=== PATIENT | female | born 1950 | race Caucasian/White ===

== ENCOUNTER 2018-06-29 20:51 | Outpatient (REF) | payer MEDICARE, BC, SELFPAY ==
[2018-06-29 21:31] LABS: Anion Gap 5.5 mmol/L (3-11); BUN 24 mg/dL (7-18); CO2 31.5 mmol/L (21.0-32.0); CREATININE 0.98 mg/dL (0.55-1.02); Calcium 9.5 mg/dL (8.5-10.1); Chloride 104 mmol/L (98-107); Cholesterol 206 mg/dL (50-200); Estimated GFR 56.61 (mL/min/1.73m2); Glucose 99 mg/dL (70-100); HDL Cholesterol 54 mg/dL (40-60); LDL CHOLESTEROL 136 mg/dL (<100); Potassium 4.4 mmol/L (3.5-5.1); Sodium 141 mmol/L (136-145); Triglyceride 104 mg/dL (30-150)
== END 2018-06-29 21:11 ==
LOC: NCHCN 20:51
PROVIDERS: PCP Physician Assistant Medical; Visit Provider Physician Assistant Medical
DX: E78.5 Hyperlipidemia, unspecified (principal); I10 Essential (primary) hypertension
CPT/HCPCS: 80048; 80061; 83721

== ENCOUNTER 2019-09-01 21:01 | Outpatient (REF) | payer MEDICARE, BC, SELFPAY ==
[2019-09-01 21:17] LABS: ALT 21 U/L (14-59); AST 14 U/L (15-37); Albumin 3.9 g/dL (3.4-5.0); Alkaline Phosphatase 58 U/L (46-116); Anion Gap 9.8 mmol/L (3-11); BUN 26 mg/dL (7-18); Bilirubin, Total 0.7 mg/dL (0.2-1.0); CO2 29.2 mmol/L (21.0-32.0); Calcium 9.4 mg/dL (8.5-10.1); Calculated LDL 124 mg/dL; Chloride 105 mmol/L (98-107); Cholesterol 198 mg/dL (<200); Estimated GFR 55.14 (mL/min/1.73m2); Glucose 96 mg/dL (74-106); HDL Cholesterol 48 mg/dL (40-60); Potassium 4.4 mmol/L (3.5-5.1); Sodium 144 mmol/L (136-145); TSH (W/Ref FT4) 1.42 uIU/mL (0.36-3.74); Total Protein 6.7 g/dL (6.4-8.2); Triglyceride 134 mg/dL (<150)
== END 2019-09-01 21:21 ==
LOC: NCHCN 21:01
PROVIDERS: PCP Physician Assistant Medical; Visit Provider Physician Assistant Medical
DX: E78.5 Hyperlipidemia, unspecified (principal)
CPT/HCPCS: 80053; 80061; 84443

== ENCOUNTER 2021-07-25 20:57 | Outpatient (REF) | payer MEDICARE, BC, SELFPAY ==
[2021-07-25 20:52] LABS: BUN 19 mg/dL (7-18); CREATININE 0.9 mg/dL (0.55-1.02); Calcium 9.3 mg/dL (8.5-10.1); Chloride 105 mmol/L (98-107); Glucose 93 mg/dL (74-106); Potassium 3.7 mmol/L (3.5-5.1); Sodium 141 mmol/L (136-145)
== END 2021-07-25 20:58 | disposition home or self-care (01) ==
LOC: NCHCN 20:57
PROVIDERS: PCP Physician Assistant Medical; Visit Provider Physician Assistant Medical
DX: I10 Essential (primary) hypertension (principal)
CPT/HCPCS: 80048

== ENCOUNTER 2022-05-10 12:24 | Outpatient (REF) | payer MEDICARE, BC, SELFPAY ==
[2022-05-10 14:54] LABS: HCT 40.5 % (36.0-46.0); HGB 13.8 g/dL (11.2-15.7); MCH 28.5 pg (27.0-33.0); MCHC 34.1 % (32.0-36.0); MCV 84 fL (80-95); MPV 10.7 fL (8.0-11.0); Platelet Count 301 10^3/uL (130-400); RBC 4.84 10^6/uL (3.93-5.22); RDW 12.3 % (11.7-14.6); RDW-SD 36.9 fL; WBC 5.43 10^3/uL (4.4-10.8)
[2022-05-10 15:24] LABS: ALT 24 U/L (14-59); AST 19 U/L (15-37); Albumin 3.8 g/dL (3.4-5.0); Alkaline Phosphatase 75 U/L (46-116); Anion Gap 8.4 mmol/L (3-11); BUN 20 mg/dL (7-18); Bilirubin, Total 0.6 mg/dL (0.2-1.0); CO2 29.6 mmol/L (21.0-32.0); CREATININE 0.9 mg/dL (0.55-1.02); Calcium 9.5 mg/dL (8.5-10.1); Calculated LDL 169 mg/dL (<100); Chloride 104 mmol/L (98-107); Cholesterol 261 mg/dL (<200); Estimated GFR 68.35 (mL/min/1.73m2); Glucose 98 mg/dL (74-106); HDL Cholesterol 59 mg/dL (40-60); Magnesium 1.9 mg/dL (1.8-2.4); Potassium 3.6 mmol/L (3.5-5.1); Sodium 142 mmol/L (136-145); TSH (W/Ref FT4) 1.27 uIU/mL (0.36-3.74); Total Protein 7.8 g/dL (6.4-8.2); Triglyceride 165 mg/dL (<150)
== END 2022-05-10 12:25 | disposition home or self-care (01) ==
LOC: NCHCN 12:24
PROVIDERS: PCP Physician Assistant Medical; Visit Provider Physician Assistant Medical
DX: E78.5 Hyperlipidemia, unspecified (principal)
CPT/HCPCS: 80053; 80061; 85027; 83735; 84443

== ENCOUNTER 2022-11-07 11:11 | Emergency (ER) | payer MEDICARE, BC, SELFPAY ==
[2022-11-07 11:26] VITALS: BP 167/82; PULSE 110; RESP 15; TEMP 37.3; O2SAT 96
--- NOTE | 2022-11-07 12:15 | DI.RAD_ITS ---
Exam(s) XR ANKLE LT COMPLETE EXAM: XR ANKLE LT COMPLETE CLINICAL HISTORY: fall TECHNIQUE: 2D digital imaging was performed. Three views. COMPARISON: No exams were available for comparison FINDINGS: BONES: No acute fracture is present. No bony destructive lesion is seen. JOINTS:The ankle mortise is normally aligned. SOFT TISSUE: Marked swelling at medial malleolus. IMPRESSION: Medial soft tissue swelling. DATA REPOSITORY: RADIATION DOSE DELIVERED:
--- NOTE | 2022-11-07 12:15 | DI.RAD_ITS ---
Exam(s) XR FOOT LT COMPLETE EXAM: XR FOOT LT COMPLETE CLINICAL HISTORY: Fall with trauma. TECHNIQUE: 2D digital imaging was performed. Three views. COMPARISON: No exams were available for comparison FINDINGS: BONES: No acute fracture is present. No bony destructive lesion is seen. JOINTS: No dislocation present. SOFT TISSUE: Normal. IMPRESSION: Unremarkable radiographs of the left foot. DATA REPOSITORY: RADIATION DOSE DELIVERED:
--- NOTE | 2022-11-07 12:15 | DI.RAD_ITS ---
Exam(s) XR TIB/FIB LT EXAM: XR TIB/FIB LT CLINICAL HISTORY: fall. TECHNIQUE: 2D digital imaging was performed. Two views. COMPARISON: No exams were available for comparison FINDINGS: There is a mildly displaced fracture of the fibular head. No additional fractures are seen. The kne e and ankle are unremarkable as visualized. IMPRESSION: Proximal fibular fracture. DATA REPOSITORY: RADIATION DOSE DELIVERED:
[2022-11-07] MEDS: Ibuprofen 600 MG TAB PO (12:42)
--- NOTE | 2022-11-07 14:37 | W.ED.GENAD ---
Discharge Plan Disposition Patient Disposition: Home Discharge Details Clinical Impression: Fracture of fibula, proximal, Left ankle sprain Primary Care Provider: Nani Fontaine ED Provider: Mike Peña Home Meds and New Rx's Prescriptions: No Action trazodone 50 MG tablet 50 mg PO HS atenolol 25 MG tablet 25 mg PO DAILY losartan-hydrochlorothiazide [Hyzaar] 1 EACH tablet 1 tab-cap PO DAILY red yeast rice 600 MG capsule 1,200 mg PO DAILY rosuvastatin 5 mg tablet 5 mg PO 1XD Discharge Instructions Instructions: Ankle Sprain (ED), Leg Fracture (ED) Additional Instructions: You may continue to use [id number] pain medication as needed for discomfort. Please rest your extremity and keep elevated to help with swelling. You may also apply ice for 20 minutes at a time with at least 20 minutes in between applications. If you develop any new or significant worsening of symptoms feel free to return the emergency department for reassessment otherwise follow-up with orthopedics as discussed. Referrals: [facility] [Provider Group] (Please call the office tomorrow for arrangement of follow-up appointment) Discharge Data Discharge Date/Time-TO BE ENTERED AT DEPARTURE: 11/07/22 14:49 Medical Decision Making Patient presenting to the emergency department for chief complaint of left ankle and knee injury. Patient slipped going down 2 stairs. Denies any other injury or trauma. Physical exam shows tenderness to the lateral aspect of the proximal fibula, midshaft fibula and both medial and lateral ankle along with dorsal foot. Patient has no neuropathy or peripheral nerve findings. we will perform radiological imaging for evaluation of acute fracture. Pending results patient given ibuprofen Reviewed radiological imaging and patient has a proximal fibular fracture otherwise soft tissue swelling is noted no other acute fracture or dislocation. Patient placed in knee immobilizer and given Jose wrap for her ankle. Patient was offered crutches but she stated that she does not feel she would be stable and that these would continue to cause further injury or potential fall but patient already has a cane and states that she would prefer to use that. I do feel that that is appropriate given potential for further injury with crutch use. Patient placed upon orthopedic list for follow-up and patient denies any need for further pain medication beyond [id number] meds. After discussion of diagnosis and plan of care patient has no further needs, questions, or concerns and states clear understanding to return to the emergency department for any worsening symptoms. This documentation was generated using [employer] dictation system, please disregard any oddities of phrase or misspellings. HPI General Mode of arrival: wheelchair. Date/Time Provider Initiated Documentation: 11/07/22 11:39. Limitations to Documentation: no limitations. Information obtained by: patient and RN notes reviewed. History of Present Illness 72 year old F presents to the emergency department with the chief complaint of Fall, left ankle injury, described as severe, with intensity rated at 10. Quality is described as aching, and is localized to the left and lower extremity. Patient started experiencing this hour(s) (2) and it has been constant. No relieving factors improve symptom(s), No exacerbating factors reported . Patient notes no other symptoms.. Patient did receive the following treatments prior to arrival, none Related Data Home Medications Medication Instructions Recorded Confirmed atenolol 25 mg tablet 25 mg PO DAILY 09/05/14 11/07/22 losartan 50 mg-hydrochlorothiazide 1 tab-cap PO DAILY 09/05/14 11/07/22 12.5 mg tablet (Hyzaar) red yeast rice 600 mg capsule 1,200 mg PO DAILY 09/05/14 11/07/22 trazodone 50 mg tablet 50 mg PO HS 09/05/14 11/07/22 rosuvastatin 5 mg tablet 5 mg PO 1XD 11/07/22 11/07/22 Allergies Allergy/AdvReac Type Severity Reaction Status Date / Time STATINS DEPLETION AdvReac MUSCLE Uncoded 11/07/22 11:30 CRAMPS General Stated Complaint: Fall/Non TraumaCriteria RASHAAD: 3 Review of Systems Narrative: 6 systems reviewed and unremarkable except what is marked below. ENT Ears, Nose, Mouth, and Throat: Denies neck pain Musculoskeletal Musculoskeletal: Reports as per HPI, Denies back pain, Denies deformity, Reports arthralgias, Reports joint swelling, Denies neck pain, Denies numbness and Denies tingling Integumentary/Breasts Skin/Breast: Denies rash and Denies wounds Neurologic Neurologic: Denies numbness and Denies tingling PFSH All Active Problems Fracture of fibula, proximal (Acute) Left ankle sprain (Acute) Medical History Sensorineural hearing loss, bilateral (12/27/13) Social History Smoking/Tobacco Use Status: Former Tobacco Use Smoking risk assessment performed?: Yes Alcohol Intake: current Alcohol Intake frequency: holidays/special occasions only Drug use: Never Substance use type: does not use Do you feel safe at home: Yes Do you feel safe in your relationship?: Yes Exam Const General: cooperative, no acute distress and not ill appearing Orientation: alert, awake and oriented x3 Resp Effort & Inspection: normal respiratory effort, able to speak in complete sentences and no respiratory distress Cardio Rate: regular rate Rhythm: regular rhythm Pulses: normal peripheral pulses Skin General skin exam: no rashes or lesions noted Neuro General: patient alert, patient awake, patient oriented x3, moves all extremities and no focal motor deficits Sensory Exam: no sensory deficits noted Extrem General: normal exam except as noted Left lower extremity: knee Details: tenderness Location: of the proximal fibula, lower leg Details: tenderness Location: of the proximal fibula, ankle Details: tenderness Location: of the lateral malleolus and of the medial malleolus, swelling Details: diffusely and abnormal ROM Details: pain with active ROM and pain with passive ROM and foot Details: tenderness Location: of the dorsal foot, toes with normal ROM and vascular exam Details: dorsalis pedis pulse present, posterior tibial pulse present and normal capillary refill Course Vital Signs Vital signs: Vital Signs Temperature 37.3 C 11/07/22 11:26 Pulse 110 H 11/07/22 11:26 Respiratory Rate 15 11/07/22 11:26 Blood Pressure 167/82 H 11/07/22 11:26 Pulse Oximetry 96 11/07/22 11:26 Temperature 37.3 C 11/07/22 11:26 Temperature Source Oral 11/07/22 11:26 Pulse 110 H 11/07/22 11:26 Respiratory Rate 15 11/07/22 11:26 Blood Pressure 167/82 H 11/07/22 11:26 Blood Pressure Position Sitting 11/07/22 11:26 Pulse Oximetry 96 11/07/22 11:26 Oxygen Delivery Method Room Air 11/07/22 11:26 Oxygen Flow Rate 0 11/07/22 11:26 Pain Level 10 11/07/22 11:26
== END 2022-11-07 14:49 | disposition home or self-care (01) ==
PROVIDERS: Emergency Provider Nurse Practitioner Family; PCP Physician Assistant Medical
DX: S82.832A Other fracture of upper and lower end of left fibula, initial encounter for closed fracture (principal); S93.402A Sprain of unspecified ligament of left ankle, initial encounter; W10.9XXA Fall (on) (from) unspecified stairs and steps, initial encounter
CPT/HCPCS: 99283; 73590; 73610; 73630

== ENCOUNTER 2022-11-18 14:54 | Outpatient (CLI) | payer MEDICARE, BC, SELFPAY ==
--- NOTE | 2022-11-18 14:45 | DI.RAD_ITS ---
Exam(s) XR TIB/FIB LT EXAM: XR TIB/FIB LT INDICATION: f/u fracture. COMPARISON: CR XR TIB/FIB LT from 11/07/2022 TECHNIQUE: 2D digital imaging was performed. Two views. FINDINGS: There has been no change in the alignment of the fracture of the fibular head. No new abnormalities. The ankle is unremarkable as visualized. DATA REPOSITORY: RADIATION DOSE DELIVERED:
--- NOTE | 2022-11-18 14:45 | DI.RAD_ITS ---
Exam(s) XR ANKLE LT COMPLETE EXAM: XR ANKLE LT COMPLETE CLINICAL HISTORY: f/u ankle sprain TECHNIQUE: 2D digital imaging was performed. Four views and including stress view. COMPARISON: CR XR ANKLE LT COMPLETE from 11/07/2022 FINDINGS: BONES: No acute fracture is present. No bony destructive lesion is seen. JOINTS:The ankle mortise is not optimally profiled on the stress view. No definite mortise widening. SOFT TISSUE: Normal. IMPRESSION: Unremarkable radiographs of the left ankle. DATA REPOSITORY: RADIATION DOSE DELIVERED:
== END 2022-11-18 14:55 | disposition home or self-care (01) ==
PROVIDERS: PCP Physician Assistant Medical; Referring Provider Physician Assistant Medical; Visit Provider Physician Assistant
DX: S82.832A Other fracture of upper and lower end of left fibula, initial encounter for closed fracture (principal); S93.402A Sprain of unspecified ligament of left ankle, initial encounter; W10.9XXA Fall (on) (from) unspecified stairs and steps, initial encounter
CPT/HCPCS: 99214; 73590; 73610

== ENCOUNTER 2022-12-09 14:33 | Outpatient (CLI) | payer MEDICARE, BC, SELFPAY ==
--- NOTE | 2022-12-09 13:45 | DI.RAD_ITS ---
Exam(s) XR TIB/FIB LT EXAM: XR TIB/FIB LT CLINICAL HISTORY: F/U FIB FRACTURE. TECHNIQUE: 2D digital imaging was performed. COMPARISON: CR XR TIB/FIB LT from 11/18/2022 FINDINGS: Two views: Fracture at the level the fibular head-neck is again noted and appears unchanged. Tibial plateau unr emarkable and there are no other focal osseous findings tibia and fibula. IMPRESSION: Unchanged appearance the fracture site in the fibular head-neck. DATA REPOSITORY: RADIATION DOSE DELIVERED:
== END 2022-12-09 14:34 | disposition home or self-care (01) ==
LOC: DIORS 14:33
PROVIDERS: PCP Physician Assistant Medical; Referring Provider Physician Assistant Medical
DX: S82.832A Other fracture of upper and lower end of left fibula, initial encounter for closed fracture (principal); W10.9XXA Fall (on) (from) unspecified stairs and steps, initial encounter
CPT/HCPCS: 99213; 73590

== ENCOUNTER 2023-01-13 11:13 | Outpatient (CLI) | payer MEDICARE, BC, SELFPAY ==
--- NOTE | 2023-01-13 11:00 | DI.RAD_ITS ---
Exam(s) XR TIB/FIB LT EXAM: XR TIB/FIB LT CLINICAL HISTORY: F/U FRACTURE. TECHNIQUE: 2D digital imaging was performed of the left tibia and fibula. Two images were obtained. AP and lateral views were obtained. COMPARISON: CR XR TIB/FIB LT from 12/09/2022 FINDINGS: BONES: There has been no change in alignment of the fracture involving the junction of the femoral he ad and neck. No new fracture is seen. No bony destructive lesion is seen. Visualized portion of kne e and ankle joints are unremarkable. SOFT TISSUE: Normal. IMPRESSION: Stable proximal fibular fracture. DATA REPOSITORY: RADIATION DOSE DELIVERED:
== END 2023-01-13 11:14 | disposition home or self-care (01) ==
LOC: DIORS 11:13
PROVIDERS: PCP Physician Assistant Medical; Referring Provider Physician Assistant Medical; Visit Provider Student in an Organized Health Care Education/Training Program
DX: S82.832D Other fracture of upper and lower end of left fibula, subsequent encounter for closed fracture with routine healing (principal); W19.XXXD Unspecified fall, subsequent encounter
CPT/HCPCS: 99213; 73590

== ENCOUNTER 2023-03-17 11:51 | Outpatient (CLI) | payer MEDICARE, BC, SELFPAY ==
--- NOTE | 2023-03-17 11:30 | DI.RAD_ITS ---
Exam(s) XR TIB/FIB LT EXAM: XR TIB/FIB LT CLINICAL HISTORY: left proximal fibula fracture. TECHNIQUE: 2D digital imaging was performed of the left tibia and fibula. Two images were obtained. AP and lateral views were obtained. COMPARISON: CR XR TIB/FIB LT from 11/07/2022 CR XR TIB/FIB LT from 01/13/2023 FINDINGS: BONES: There has been no change in alignment of the healing proximal fibular fracture. No new fractu re is seen. No bony destructive lesion is seen. Visualized portion of knee and ankle joints are unre markable. SOFT TISSUE: Normal. IMPRESSION: Stable proximal fibular fracture deformity. DATA REPOSITORY: RADIATION DOSE DELIVERED:
== END 2023-03-17 11:52 | disposition home or self-care (01) ==
LOC: DIORS 11:51
PROVIDERS: PCP Physician Assistant Medical; Referring Provider Physician Assistant Medical; Visit Provider Student in an Organized Health Care Education/Training Program
DX: M23.92 Unspecified internal derangement of left knee (principal); S93.402D Sprain of unspecified ligament of left ankle, subsequent encounter; S82.832D Other fracture of upper and lower end of left fibula, subsequent encounter for closed fracture with routine healing; W19.XXXD Unspecified fall, subsequent encounter
CPT/HCPCS: 20610; 73590; J1040

== ENCOUNTER 2023-06-11 12:41 | Outpatient (REF) | payer MEDICARE, BC, SELFPAY ==
[2023-06-11 15:38] LABS: ALT 29 U/L (14-59); AST 20 U/L (15-37); Albumin 3.9 g/dL (3.4-5.0); Alkaline Phosphatase 84 U/L (46-116); Anion Gap 7.9 mmol/L (3-11); BUN 14 mg/dL (7-18); Bilirubin, Total 0.6 mg/dL (0.2-1.0); CO2 28.1 mmol/L (21.0-32.0); Calcium 9.9 mg/dL (8.5-10.1); Calculated LDL 85 mg/dL (<100); Chloride 104 mmol/L (98-107); Cholesterol 171 mg/dL (<200); Estimated GFR 59.86 (mL/min/1.73m2); Glucose 101 mg/dL (74-106); HDL Cholesterol 60 mg/dL (40-60); Potassium 3.5 mmol/L (3.5-5.1); Sodium 140 mmol/L (136-145); Total Protein 7.8 g/dL (6.4-8.2); Triglyceride 130 mg/dL (<150)
== END 2023-06-11 12:42 | disposition home or self-care (01) ==
LOC: NCHCN 12:41
PROVIDERS: PCP Physician Assistant Medical; Visit Provider Physician Assistant Medical
DX: E78.5 Hyperlipidemia, unspecified (principal); Z00.00 Encounter for general adult medical examination without abnormal findings
CPT/HCPCS: 80053; 80061

== ENCOUNTER 2025-02-18 12:20 | Outpatient (REF) | payer MEDICARE, BC, SELFPAY ==
[2025-02-18 15:54] LABS: Hemoglobin A1C 5.9 % (<5.7)
[2025-02-18 16:14] LABS: ALT 25 U/L (14-59); AST 18 U/L (15-37); Alkaline Phosphatase 85 U/L (46-116); Anion Gap 7.4 mmol/L (3-11); BUN 18 mg/dL (7-18); Bilirubin, Total 0.8 mg/dL (0.2-1.0); CO2 29.6 mmol/L (21.0-32.0); CREATININE 0.8 mg/dL (0.55-1.02); Calcium 9.3 mg/dL (8.5-10.1); Calculated LDL 97 mg/dL (<100); Chloride 105 mmol/L (98-107); Cholesterol 179 mg/dL (<200); Estimated GFR 77.75 (mL/min/1.73m2); Glucose 100 mg/dL (74-106); HDL Cholesterol 65 mg/dL (>or=50); Potassium 4.4 mmol/L (3.5-5.1); Sodium 142 mmol/L (136-145); Total Protein 6.9 g/dL (6.4-8.2); Triglyceride 88 mg/dL (<150)
== END 2025-02-18 12:21 | disposition home or self-care (01) ==
LOC: NCHCN 12:20
PROVIDERS: PCP Physician Assistant Medical; Visit Provider Physician Assistant Medical
DX: E78.5 Hyperlipidemia, unspecified (principal); Z13.1 Encounter for screening for diabetes mellitus; I10 Essential (primary) hypertension
CPT/HCPCS: 80053; 80061; 83036

== ENCOUNTER 2025-05-09 10:52 | Outpatient (REF) | payer MEDICARE, BC, SELFPAY ==
[2025-05-09 16:34] LABS: Anion Gap 6.7 mmol/L (3-11); BUN 16 mg/dL (7-18); CO2 30.3 mmol/L (21.0-32.0); Calcium 9.9 mg/dL (8.5-10.1); Chloride 103 mmol/L (98-107); Estimated GFR 59.12 (mL/min/1.73m2); Glucose 111 mg/dL (74-106); Magnesium 2.0 mg/dL (1.8-2.4); Potassium 3.6 mmol/L (3.5-5.1); Sodium 140 mmol/L (136-145); TSH (W/Ref FT4) 1.73 uIU/mL (0.36-3.74)
== END 2025-05-09 10:53 | disposition home or self-care (01) ==
LOC: NCHCN 10:52
PROVIDERS: PCP Physician Assistant Medical; Visit Provider Physician Assistant Medical
DX: I10 Essential (primary) hypertension (principal)
CPT/HCPCS: 80048; 83735; 84443

== ENCOUNTER 2025-05-16 15:13 | Outpatient (REF) | payer MEDICARE, BC, SELFPAY ==
[2025-05-16 15:42] LABS: Abs Immature Grans 0.01 10^3/uL (0.0-0.06); HCT 38.9 % (36.0-46.0); HGB 12.9 g/dL (11.2-15.7); Immature Grans % 0.2 %; MCH 28.5 pg (27.0-33.0); MCHC 33.2 % (32.0-36.0); MCV 86 fL (80-95); MPV 11.0 fL (8.0-11.0); Platelet Count 303 10^3/uL (130-400); RBC 4.53 10^6/uL (3.93-5.22); RDW 12.7 % (11.7-14.6); RDW-SD 39.8 fL; WBC 5.93 10^3/uL (4.4-10.8)
== END 2025-05-16 15:14 | disposition home or self-care (01) ==
LOC: NCHCN 15:13
PROVIDERS: PCP Physician Assistant Medical; Visit Provider Physician Assistant Medical
DX: R00.2 Palpitations (principal)
CPT/HCPCS: 85025